=== PATIENT | female | born 1955 | race Caucasian/White ===

== ENCOUNTER → 2017-06-08 | Outpatient (CLI) | payer OTHER ==
[~2017-06-08] MED LIST: ADVAIR 250-501 EACH INH; ADVAIR HFA 230M12 GM INH; ALLEGRA ALLERG180 MG PO; ALLEGRA60 MG PO; ASPIRIN EC81 M1 PO; BENADRYL25 MG PO; CIPROFLOXIN HC2.5 M1 OPHTHALMIC; COSAMIN DS TAB1 EACH PO; D3 PO; DIOVAN 80 MG TA80 M1 PO; DIOVAN160 MG PO; FIBER-TABS625 MG PO; GLUCOSAM-CHOND1 EACH PO; HYDROCHLOROTH12.5 M1 PO; L-LYSINE500 M1 PO; LUTEIN 15 MG S1 EACH PO; MEDROLDOSEPACK PO; MELATONIN3 MG PO; PREDNISONE 20 M20 M1 PO; UNICOMPLEX M TA1 TA1 PO; VITAMIN B-12500 MCG PO; VITAMINC500 PO; WELLBUTRIN XL300 MG PO; ZPAK PO
== END ==
LOC: M.RAD 08:46
DX: Z12.31 Encounter for screening mammogram for malignant neoplasm of breast (principal); N91.2 Amenorrhea, unspecified; Z78.0 Asymptomatic menopausal state

== ENCOUNTER → 2019-01-29 | Outpatient (CLI) | payer BC | LOC: M.RAD 09:56 | DX: Z12.31 Encounter for screening mammogram for malignant neoplasm of breast (principal) ==

== ENCOUNTER 2020-02-09 02:02 | Emergency (ER) | payer BC ==
[~2020-02-09] VITALS: Ht 167.6 cm; Wt 86.2 kg
[2020-02-09] MEDS ORDERED: DORYX MPC120 MG PO (02:10)
[2020-02-09] MEDS ORDERED: CLONIDINE HCL0.2 M2 PO (02:10)
[2020-02-09] MEDS ORDERED: COZAAR 25 MG TA25 M1 (02:10)
[2020-02-09] MEDS ORDERED: AZITHROMYCIN 2250 MG PO (02:40)
[2020-02-09 03:11] VITALS: BP 108/60
== END 2020-02-09 03:11 | disposition home or self-care (01) ==
LOC: M.ERS 02:02
DX: R06.02 Shortness of breath (principal); T36.4X5A Adverse effect of tetracyclines, initial encounter; I10 Essential (primary) hypertension; Z79.899 Other long term (current) drug therapy; Z88.1 Allergy status to other antibiotic agents; Y92.89 Other specified places as the place of occurrence of the external cause

== ENCOUNTER → 2020-06-16 | Outpatient (CLI) | payer BC ==
[~2020-06-16] MED LIST changes: +AZITHROMYCIN 2250 MG PO; +CLONIDINE HCL0.2 M2 PO; +COZAAR 25 MG TA25 M1; +DORYX MPC120 MG PO
== END ==
LOC: M.RAD 13:35
PROVIDERS: ATTEND Nurse Practitioner Family
DX: Z12.31 Encounter for screening mammogram for malignant neoplasm of breast (principal)